=== PATIENT | male | born 1995 | race Caucasian/White ===

== ENCOUNTER 2017-03-13 22:33 | Emergency (ER) | payer SELFPAY ==
[2017-03-13] MEDS ORDERED: Ondansetron HCl/PF 4 MG/2 ML Vial ONE (22:51)
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
[2017-03-14] MEDS ORDERED: Adacel (T-DAP) 0.5 ML VIAL ONE (00:29)
--- NOTE | 2017-03-14 07:15 | RAD ---
3 VIEWS RIGHT SHOULDER: Date: 03/14/17 HISTORY: Shoulder pain. Post reduction. COMPARISON: 03/13/17 at 2259 hours. FINDINGS: There has been interval reduction in the previously noted anterior right shoulder dislocation. No fr acture or dislocation is seen on the current exam. No other osseous abnormality. IMPRESSION: Interval reduction of the previously noted right anterior shoulder dislocation. POS: [facility]
== END 2017-03-14 00:51 | disposition home or self-care (01) ==
LOC: NAV ERS 22:33
DX: S43.014A Anterior dislocation of right humerus, initial encounter (principal); S01.21XA Laceration without foreign body of nose, initial encounter; V86.59XA Driver of other special all-terrain or other off-road motor vehicle injured in nontraffic accident, initial encounter
CPT/HCPCS: 12011; 23650; 71010; 90471; 90715; 96374; 96375; J1170; J2270; J2405